=== PATIENT | male | born 1955 | race Caucasian/White ===

== ENCOUNTER 2017-12-01 16:25 | Inpatient (IN) | payer SELFPAY ==
[2017-12-01 17:16] LABS: #Lymphocytes 1.3 thou/uL (1.20-3.40); #Monocytes 0.9 thou/uL (0.11-0.59); %Basophils 0.4 % (0.0-1.0); %Eosinophils 0.3 % (0.0-10.0); %Lymphocytes 17.5 % (21.0-51.0); %Monocytes 12.8 % (0.0-10.0); %Neutrophils 68.9 % (42.0-75.0); Hemoglobin 14.1 g/dL (14.0-18.0); Mean Corpuscular HGB CONC 32.9 g/dL (32.0-36.0); Mean Corpuscular Hemoglobin 34.2 pg (27.0-31.0); Mean Platelet Volume 7.4 fL (7.4-10.4); Platelet Count 138 thou/uL (130-400); RBC Distribution Width 13.1 % (11.5-14.5); Red Blood Cell (RBC) Count 4.11 mill/uL (4.70-6.10); White Blood Cell (WBC) Count 7.3 thou/uL (4.8-10.8)
[2017-12-01 17:37] LABS: ALT (SGPT) 17 U/L (8-55); AST (SGOT) 23 U/L (5-34); Albumin 3.6 g/dL (3.5-5.0); Alkaline Phosphatase 74 U/L (40-150); Anion Gap 10 mmol/L (10-20); BUN (Urea Nitrogen) 13 mg/dL (8.4-25.7); Bilirubin, Total 1.5 mg/dL (0.2-1.2); Calc. Creatinine Clearance 0 mL/min (70-130); Calcium 8.6 mg/dL (7.8-10.44); Carbon Dioxide 25 mmol/L (22-29); Chloride 105 mmol/L (98-107); Estimated GFR-MDRD 79; Globulin 3.2 g/dL (2.4-3.5); Glucose 141 mg/dL (70-105); Potassium 3.4 mmol/L (3.5-5.1); Protein, Total 6.8 g/dL (6.0-8.3); Sodium 137 mmol/L (136-145)
[2017-12-01] MEDS ORDERED: Furosemide 40 MG/4 ML VIAL ONE (19:42)
[2017-12-01] MEDS ORDERED: Enoxaparin Sodium 100 MG/ML SYRINGE ONE (19:42)
[2017-12-01] MEDS ORDERED: Diltiazem HCl 125 MG, Admixture Fee 1 EACH in Sodium Chloride 0.9% 100 ML IVPB SCH (19:45)
[2017-12-01 20:53] LABS: CKMB 4.1 ng/mL (0-6.6); Troponin I 0.033 ng/mL (< 0.028)
[2017-12-01] MEDS ORDERED: Bisacodyl 5 MG TAB PO PRN (22:04)
[2017-12-01] MEDS ORDERED: Ondansetron ODT 4 MG TAB PO PRN (22:04)
[2017-12-01] MEDS ORDERED: Acetaminophen 325 MG TAB PO PRN (22:04)
[2017-12-01] MEDS ORDERED: Carvedilol 25 MG TAB PO SCH (22:15)
[2017-12-01] MEDS ORDERED: Famotidine 20 MG TAB PO SCH (22:30)
--- NOTE | 2017-12-01 22:37 | RAD ---
TWO VIEWS OF THE CHEST 12/01/17 COMPARISON: 09/19/14. HISTORY: Swelling in his feet and shortness of breath. FINDINGS: Two views of the chest shows an enlarged but stable cardiomediastinal silhouette. The patient is stat us post sternotomy. There are increased interstitial lung markings without consolidation, mass or ple ural effusion. IMPRESSION: Cardiomegaly without evidence of acute cardiopulmonary disease. POS: [facility]
[2017-12-01] MEDS ORDERED: Melatonin 3 MG TAB PO SCH (22:45)
[2017-12-01] MEDS ORDERED: Famotidine 20 MG TAB ONE (23:31)
[2017-12-02 00:01] LABS: Troponin I 0.041 ng/mL (< 0.028)
[2017-12-02] MEDS ORDERED: PROVENTIL INHALER 6.7 G (200 INHALATIONS) INH PRN (01:15)
[2017-12-02] MEDS ORDERED: Zolpidem Tartrate 5 MG TAB ONE (02:06)
[2017-12-02 03:16] LABS: Troponin I 0.047 ng/mL (< 0.028)
[2017-12-02 03:19] LABS: Anion Gap 13 mmol/L (10-20); BUN (Urea Nitrogen) 13 mg/dL (8.4-25.7); Calc. Creatinine Clearance 0 mL/min (70-130); Calcium 9.1 mg/dL (7.8-10.44); Carbon Dioxide 24 mmol/L (22-29); Chloride 104 mmol/L (98-107); Estimated GFR-MDRD Greater than 90; Glucose 201 mg/dL (70-105); Potassium 3.3 mmol/L (3.5-5.1); Sodium 138 mmol/L (136-145)
--- NOTE | 2017-12-02 03:59 | HP-2 ---
CODE STATUS: DO NOT RESUSCITATE. PRIMARY CARE PHYSICIAN: Mendel gonzales. ATTENDING: Dr. Horne. RESIDENT: Dr. Olmstead. CHIEF COMPLAINT: Shortness of breath. HISTORY OF PRESENT ILLNESS: This is a 62-year-old male who presents with a 1 week history of lower e xtremity swelling and shortness of breath. He states that he ran out of all of his medicines roughly 5 weeks ago because of loss of insurance. He also notes intermittent chest pain during this time. He admits to orthopnea to exercise intolerance and palpitations. He states that he is no longer able to walk up two flights of stairs. He is not able to walk around the grocery store any longer. He d enies any falls, but he also often gets lightheaded and unsteady on his feet. He has no other compla ints at this time. In the ER, he was given Lasix 40 mg, Lovenox 120 mg, diltiazem 20 mg and a 5 mg p er hour drip. PAST MEDICAL HISTORY: Significant for hypertension, coronary artery disease, status post 3-vessel CA BG, and atrial fibrillation. PAST SURGICAL HISTORY: Significant for history of 3-vessel CABG. ALLERGIES: No known drug allergies. MEDICATIONS: Alprazolam 0.5 mg, atorvastatin 80 mg, Proventil HFA, Ambien 10 mg, hydrochlorothiazide 25 mg, Xarelto 20 mg, and carvedilol 25 mg b.i.d. FAMILY HISTORY: Noncontributory. SOCIAL HISTORY: Patient is a current half pack per day smoker. He has smoked so long for at least 5 0 pack years. No alcohol, no drug use. REVIEW OF SYSTEMS: General: No fevers, no chills, no weight changes, no night sweats. Eyes: No vi stephen changes or eye pain. ENT: Denies any nasal congestion, rhinorrhea, or sore throat. Respirator y: Denies any cough, congestion. He does admit to shortness of breath and exercise intolerance. Ca rdiovascular: Admits chest pain, palpitations, edema, and orthopnea. Gastrointestinal: Denies naus ea, vomiting, diarrhea, constipation. Genitourinary: Denies incontinence, dysuria. Skin: He admit s to rash on his lower extremities. Musculoskeletal: Denies pain, tenderness or stiffness, but he d oes have swelling down to his lower extremities. Neurologic: Denies any numbness or syncope. Does admit to weakness. Psychiatric: He denies anxiety or depression. PHYSICAL EXAMINATION: VITAL SIGNS: BP was 172/109, pulse is 101, respiratory rate 21, temperature max 98.3, pulse ox 97% o n room air, current weight is 119 kilos. GENERAL: He is alert and oriented, appropriate, interactive. EYES: PERRLA. Conjunctivae within normal limits. ENT: Tympanic membranes pearly ag without bulging or erythema. Nasal mucosa and oropharynx within normal limits. NECK: Supple, with no lymphadenopathy, no thyromegaly. He does have JVD present. CARDIAC: He has an irregular rate and rhythm, no murmurs. Radial and pedal pulses were present, alt carin his pedal pulses were weak with the edema present. RESPIRATORY: Normal effort, no retractions. He does have coarse lung sounds with wheezes and crackl es bilaterally. SKIN: Warm and dry. ABDOMEN: Soft, nontender to palpation. Bowel sounds are present x4. No mass or distention. EXTREMITIES: He has no clubbing, no cyanosis. He does have 3+ pitting edema with some overlying jay ous stasis dermatitis skin changes present. MUSCULOSKELETAL: Structure, tone, muscle strength and range of motion within normal limits. NEUROLOGIC: No focal neurologic deficit sensation. Cranial nerves II-XII grossly intact. GCS was 1 5. PSYCHIATRIC: Appropriate. LABORATORY DATA: White blood cell count is 7.3, platelet count 138, hemoglobin 14.1, hematocrit 42.8 , MCV was 104, percent neutrophils 68.9. Sodium 137, potassium 3.4, chloride 105, bicarb 25, BUN 13, creatinine 0.97, glucose was 141, calcium was 8.6, total protein 6.8, albumin 3.6, total bilirubin 1 .5, AST was 23, ALT was 17, alkaline phosphatase was 74. His BNP was 414. His EKG showed atrial fib rillation with RVR. ASSESSMENT AND PLAN: A 62-year-old male. 1. New onset congestive heart failure. We gave him IV Lasix. We will put him on strict I's and O's . Get an echo. Fluid restriction. Restart home medications, get a cardiac profile, chest x-ray and start him on a heart failure regimen including an DAR inhibitor. 2. Atrial fibrillation with rapid ventricular response secondary to #1. We will give him diltiazem as needed. Likely that his beta tessie, carvedilol will be able to manage his rate and I am going f orward. 3. Coronary artery disease, status post 3-vessel coronary artery bypass graft. We will consider Car diology consult as this may be the source of his atrial fibrillation as well. We do have a cardiac p rofile pending. 4. Chronic obstructive pulmonary disease. We will put DuoNebs as needed and he is to start his inha ler. At this time, it does not seem that he needs to have steroids initiated. 5. Hypertension. We will continue his home medications and monitor. 6. Insomnia. We started with melatonin. We will give Ambien as needed as well. 7. Hyperbilirubinemia. It could be due to hepatic congestion. We will monitor that going forward. 8. Tobacco abuse. We have counseled him on cessation going forward. DISPOSITION LENGTH OF HOSPITAL STAY: Will be tele and 2. Symptomatic medications will be provided. History and physical exam as well as management has been discussed with Dr. Horne.
[2017-12-02] MEDS ORDERED: Furosemide 40 MG/4 ML VIAL ONE (05:46)
--- NOTE | 2017-12-02 07:22 | PDOC.FM ---
- Subjective Subjective: Patient reports that his symptoms have improved this AM. He is lying comfortably in bed with no SOB. He denies any further chest pain. He reports that he still has swelling in his legs. He denies any abd pain, N/V. - Objective MAR Reviewed: Yes Vital Signs & Weight: Vital Signs (12 hours) Pulse Resp Pulse Ox 12/02/17 00:24 86 20 95 Result Diagrams: 12/01/17 17:06 12/02/17 02:34 <Jelly Clark - Last Filed: 12/02/17 07:19> - Objective Vital Signs & Weight: Vital Signs (12 hours) Pulse Resp Pulse Ox 12/02/17 00:24 86 20 95 Result Diagrams: 12/01/17 17:06 12/02/17 02:34 <Tavo Horne - Last Filed: 12/02/17 10:14> Phys Exam - Physical Examination Constitutional: NAD HEENT: moist MMs Respiratory: no wheezing, no rales, no rhonchi, clear to auscultation bilateral Cardiovascular: no significant murmur, no rub irregularly irregular Gastrointestinal: soft, non-tender, no distention Musculoskeletal: pulses present, edema present (1+ pitting edema to mid valentin) Neurological: non-focal, moves all 4 limbs Psychiatric: normal affect, A&O x 3 <Jelly Clark - Last Filed: 12/02/17 07:19> Dx/Plan (1) CHF exacerbation Code(s): I50.9 - HEART FAILURE, UNSPECIFIED Status: Acute QualifierTitle: Congestive heart failure type: unspecified congestive heart failure type Qualified Code(s): I50.9 - Heart failure, unspecified (2) Atrial fibrillation Code(s): I48.91 - UNSPECIFIED ATRIAL FIBRILLATION Status: Acute QualifierTitle: Atrial fibrillation type: chronic Qualified Code(s): I48.2 - Chronic atrial fibrillation (3) CAD (coronary artery disease) Code(s): I25.10 - ATHSCL HEART DISEASE OF [place] CORONARY ARTERY W/O ANG PCTRS Status: Acute QualifierTitle: Coronary Disease-Associated Artery/Lesion type: [place] artery [place] vs. transplanted heart: [place] heart Associated angina: with unspecified angina Qualified Code(s): I25.119 - Atherosclerotic heart disease of [place] coronary artery with unspecified angina pectoris (4) COPD (chronic obstructive pulmonary disease) Status: Acute QualifierTitle: COPD type: unspecified COPD Qualified Code(s): J44.9 - Chronic obstructive pulmonary disease, unspecified (5) HTN (hypertension) Code(s): I10 - ESSENTIAL (PRIMARY) HYPERTENSION Status: Acute QualifierTitle: Hypertension type: essential hypertension Qualified Code( s): I10 - Essential (primary) hypertension (6) Tobacco abuse Code(s): Z72.0 - TOBACCO USE Status: Acute - Plan Plan: 1. New onset Acute CHF Exacerbation Patient has SOB, [place], Orthopnea, severe pitting edema, JVD, elevated BNP to 414.2. He has no history of CHF in the past. -Lasix 40mg IV BID -Lisinopril -Echo -Consult cards pending echo results -Strict I/O's, fluid restrict, daily weights 2. A-fib Patient has been told in the past that his heart was in an irregular rhythm. Patient was on a dilt gtt initially in the ED, but this has been discontinued. -Coreg 25mg BID -Monitor on tele 3. Indeterminate Troponins Patient was initially complaining of chest pain, this has since resolved. No ischemic changes on EKG -Trend troponins -Monitor on tele -Repeat EKG prn -On Xarelto -Nitro prn 4. COPD Patient does not appear to be in an acute exacerbation -Will continue home meds -Duonebs prn 5. CAD s/p 3v CABG -Continue home meds 6. HTN -Continue home meds 7. Tobacco abuse -Nicoderm patch -Counseling <Jelly Clark - Last Filed: 12/02/17 07:19> Attending Addendum - Attending Addendum I personally evaluated the patient and discussed the management with Dr. Clark. I agree with the History, Examination, Assessment and Plan documented above with any addition or exceptions noted below. Patient admitted for Afib with RVR likely 2/2 medication noncompliance. We will stop Dilt drip now and restart his home beta tessie medication. If recurs, will need Dilt drip and cardiology consult for further mgmt options. Also appears to have new onset HF based on exam and history. Awaiting echo report, continue with strict I/O, fluid restriction, and diuresis. Expect 1-2 days more in hospital. <Tavo Horne R - Last Filed: 12/02/17 10:14>
[2017-12-02] MEDS ORDERED: Carvedilol 25 MG TAB PO SCH ×2 (08:00)
[2017-12-02] MEDS ORDERED: Potassium Chloride 20 MEQ TAB PO SCH (10:15)
--- NOTE | 2017-12-02 10:22 | PDOC.EVN ---
Attending Addendum - Attending Addendum I personally evaluated the patient and discussed the management with Dr. Olmstead. I agree with the History, Examination, Assessment and Plan documented in his H& P with any addition or exceptions noted below. Patient with history of CAD, Afib, HTN admitted after being off medications for several weeks. He has had chest pain, palpitations, shortness of breath, and symptoms of heart failure. His exam is consistent with such. Patient to be admitted for Afib RVR, likely new onset HF, and chest pain. Will hold Diltiazem and restart Coreg as his HR is now back within normal range. Will obtain Echo, and begin diuresis. Cardiology consult if truly in new onset HF.
[2017-12-02] MEDS ORDERED: Famotidine 20 MG TAB ONE (10:27)
[2017-12-02 10:34] LABS: Hemoglobin A1c 5.9 % (4.0-6.0)
[2017-12-02 10:47] LABS: CKMB 2.6 ng/mL (0-6.6); Troponin I 0.041 ng/mL (< 0.028)
[2017-12-02] MEDS: Nicotine 14 MG PATCH TD SCH ×2 (13:09→21:31)
[2017-12-02] MEDS: Rivaroxaban 10 MG TAB PO SCH (13:10)
[2017-12-02] MEDS: Furosemide 40 MG/4 ML VIAL SLOW IVP SCH ×2 (13:10→13:55)
[2017-12-02] MEDS: Atorvastatin Calcium 40 MG TAB PO SCH (13:11)
[2017-12-02] MEDS: Famotidine 20 MG TAB PO SCH ×2 (13:11→21:31)
[2017-12-02] MEDS: Lisinopril 2.5 MG TAB PO SCH (13:11)
[2017-12-02] MEDS: Carvedilol 25 MG TAB PO SCH ×2 (13:11→21:31)
[2017-12-02 13:13] VITALS: BMI 33.5
--- NOTE | 2017-12-02 13:48 | EKG ---
Test Reason : SOB Blood Pressure : / mmHG Vent. Rate : 104 BPM Atrial Rate : 220 BPM P-R Int : 000 ms QRS Dur : 080 ms QT Int : 352 ms P-R-T Axes : 000 054 028 degrees QTc Int : 462 ms Atrial fibrillation with rapid ventricular response Abnormal ECG Confirmed by CARMEL HOUSTON ([id number]), advertising editor ANGELES NORIEGA ([id number]) on 12/02/2017 1:48:14 PM Referred By: Confirmed By:CARMEL HOUSTON
[2017-12-02] MEDS ORDERED: Sodium Chloride 0.9% 10 ML ONE (20:28)
[2017-12-02] MEDS ORDERED: Albuterol Sulfate 1.25 MG/3 ML NEB NEB PRN (22:28)
[2017-12-02] MEDS: Loratadine 10 MG TAB PO PRN (22:44)
[2017-12-02] MEDS: Zolpidem Tartrate 5 MG TAB PO PRN (22:45)
[2017-12-03] MEDS: Rivaroxaban 10 MG TAB PO SCH (06:04)
[2017-12-03] MEDS: Furosemide 40 MG/4 ML VIAL SLOW IVP SCH ×2 (06:04→13:43)
[2017-12-03 06:47] LABS: Anion Gap 11 mmol/L (10-20); BUN (Urea Nitrogen) 13 mg/dL (8.4-25.7); Calc. Creatinine Clearance 159 mL/min (70-130); Carbon Dioxide 27 mmol/L (22-29); Chloride 103 mmol/L (98-107); Estimated GFR-MDRD Greater than 90; Glucose 116 mg/dL (70-105); Potassium 3.4 mmol/L (3.5-5.1); Sodium 138 mmol/L (136-145)
--- NOTE | 2017-12-03 07:17 | PDOC.FM ---
- Subjective Subjective: The patient is doing well this AM. He reports that he had some SOB overnight last night and he is supposed to use CPAP at home, but he doesn't so he was given a CPAP machine to use and that helped a lot with his SOB. He feels like his swelling has improved some and denies any chest pain. He is tolerating PO well. - Objective MAR Reviewed: Yes Vital Signs & Weight: Vital Signs (12 hours) Temp Pulse Resp BP BP Pulse Ox 12/03/17 06:00 111 H 20 142/91 H 12/03/17 04:20 177/103 H 12/03/17 04:00 98.0 F 105 H 20 177/103 H 95 12/03/17 03:55 95 12/03/17 02:54 12 12/03/17 00:07 149/94 H 95 12/02/17 23:58 99.3 F 100 22 H 149/94 H 95 12/02/17 23:45 98 12 96 12/02/17 21:28 98.1 F 107 H 20 129/91 H 93 L 12/02/17 21:04 129/91 H Weight Weight 114.532 kg I&O: 12/02/17 12/03/17 12/04/17 06:59 06:59 06:59 Intake Total 1464 Output Total 2250 Balance -786 Result Diagrams: 12/01/17 17:06 12/03/17 06:00 <Jelly Clark - Last Filed: 12/03/17 07:15> - Objective Vital Signs & Weight: Vital Signs (12 hours) Temp Pulse Resp BP BP Pulse Ox 12/03/17 08:17 88 12 12/03/17 06:00 111 H 20 142/91 H 12/03/17 04:20 177/103 H 12/03/17 04:00 98.0 F 105 H 20 177/103 H 95 12/03/17 03:55 95 12/03/17 02:54 12 12/03/17 00:07 149/94 H 95 12/02/17 23:58 99.3 F 100 22 H 149/94 H 95 12/02/17 23:45 98 12 96 Weight Weight 114.532 kg I&O: 12/02/17 12/03/17 12/04/17 06:59 06:59 06:59 Intake Total 1464 Output Total 2250 Balance -786 Result Diagrams: 12/01/17 17:06 12/03/17 06:00 <Tavo Horne - Last Filed: 12/03/17 10:00> Phys Exam - Physical Examination Constitutional: NAD HEENT: moist MMs Respiratory: no wheezing, no rhonchi rales in bilateral lung bases Cardiovascular: no significant murmur, no rub irregularly irregular Gastrointestinal: soft, non-tender, no distention, positive bowel sounds Musculoskeletal: pulses present, edema present (2+ pitting edema in bilateral lower extremities) Neurological: non-focal, moves all 4 limbs Psychiatric: normal affect, A&O x 3 <Jelly Clark - Last Filed: 12/03/17 07:15> Dx/Plan (1) CHF exacerbation Code(s): I50.9 - HEART FAILURE, UNSPECIFIED Status: Acute QualifierTitle: Congestive heart failure type: unspecified congestive heart failure type Qualified Code(s): I50.9 - Heart failure, unspecified (2) Atrial fibrillation Code(s): I48.91 - UNSPECIFIED ATRIAL FIBRILLATION Status: Acute QualifierTitle: Atrial fibrillation type: chronic Qualified Code(s): I48.2 - Chronic atrial fibrillation (3) CAD (coronary artery disease) Code(s): I25.10 - ATHSCL HEART DISEASE OF [place] CORONARY ARTERY W/O ANG PCTRS Status: Acute QualifierTitle: Coronary Disease-Associated Artery/Lesion type: [place] artery [place] vs. transplanted heart: [place] heart Associated angina: with unspecified angina Qualified Code(s): I25.119 - Atherosclerotic heart disease of [place] coronary artery with unspecified angina pectoris (4) COPD (chronic obstructive pulmonary disease) Status: Acute QualifierTitle: COPD type: unspecified COPD Qualified Code(s): J44.9 - Chronic obstructive pulmonary disease, unspecified (5) HTN (hypertension) Code(s): I10 - ESSENTIAL (PRIMARY) HYPERTENSION Status: Acute QualifierTitle: Hypertension type: essential hypertension Qualified Code( s): I10 - Essential (primary) hypertension (6) Tobacco abuse Code(s): Z72.0 - TOBACCO USE Status: Acute (7) Atrial fibrillation with RVR Code(s): I48.91 - UNSPECIFIED ATRIAL FIBRILLATION Status: Acute - Plan Plan: 1. New onset CHF Patient has SOB, [place], Orthopnea, severe pitting edema, JVD, elevated BNP to 414.2. He has no history of CHF in the past. -Lasix 40mg IV BID -Lisinopril -Echo -Consult cards pending echo results -Strict I/O's, fluid restrict, daily weights Diuresed net -630 in past 24 h 2. A-fib Patient has been told in the past that his heart was in an irregular rhythm. Patient was on a dilt gtt initially in the ED, but this has been discontinued. -Coreg 25mg BID -Monitor on tele Has been in a-fib with rate in 90s-low 100's 3. Indeterminate Troponins Patient was initially complaining of chest pain, this has since resolved. No ischemic changes on EKG Trops downtrended -Monitor on tele -Repeat EKG prn -On Xarelto -Nitro prn 4. COPD Patient does not appear to be in an acute exacerbation -Will continue home meds -Duonebs prn 5. CAD s/p 3v CABG -Continue home meds 6. HTN -Continue home meds 7. Tobacco abuse -Nicoderm patch -Counseling <Jelly Clark - Last Filed: 12/03/17 07:15> Attending Addendum - Attending Addendum I personally evaluated the patient and discussed the management with Dr. Clark. I agree with the History, Examination, Assessment and Plan documented above with any addition or exceptions noted below. Patient feels improved, but continues to have elevated heart rate despite maximal beta blockade with Coreg. He also is having some PVCs on his tele monitoring. Will consult cardiology for further recs regarding his Afib, consider Amiodarone if continues to have frequent PVCs or if has NS v tach. Echo shows preserved EF. Will continue diuresis for presumed new onset HF, likely diastolic in nature. <Tavo Horne - Last Filed: 12/03/17 10:00>
[2017-12-03] MEDS ORDERED: Potassium Chloride 20 MEQ TAB PO SCH (07:45)
[2017-12-03] MEDS ORDERED: Sodium Chloride 0.9% 10 ML ONE ×3 (08:08→20:14)
[2017-12-03] MEDS ORDERED: FLU VACC QS2017-18 36 mo. & older 0.5 ML SYRINGE IM ONE (09:00)
[2017-12-03] MEDS: Atorvastatin Calcium 40 MG TAB PO SCH (09:37)
[2017-12-03] MEDS: Carvedilol 25 MG TAB PO SCH ×2 (09:38→21:51)
[2017-12-03] MEDS: Famotidine 20 MG TAB PO SCH ×2 (09:38→21:51)
[2017-12-03] MEDS: Lisinopril 2.5 MG TAB PO SCH (09:39)
[2017-12-03] MEDS: Fluticasone Propionate Nasal Spray 16 gm Bottle NASAL SCH (12:25)
[2017-12-03] MEDS ORDERED: Lorazepam 1 MG TAB PO PRN (14:17)
[2017-12-03] MEDS ORDERED: Diltiazem 125 MG in Sodium Chloride 0.9% 100 ML IVPB SCH (16:00)
--- NOTE | 2017-12-03 17:56 | CON ---
DATE OF CONSULTATION: 12/03/2017 REASON FOR CONSULTATION: Atrial fibrillation with rapid ventricular response and cardiomyopathy. HISTORY OF PRESENT ILLNESS: Mr. Butler is a 62-year-old gentleman who is a patient of Dr. Cesar henriquez. He currently lives in [place] near [place], but works in [place]. He has been seen and e valuated at our institution several times over the last several years. He underwent coronary angiogr aphy and was treated medically by Dr. Cesar Caceres. He also has a history of atrial fibrillation. His main complaint has been shortness of breath and lower extremity edema with decreased exercise t olerance. No chest pain or pressure noted. He does state he was set up for ICD placement, but due t o insurance issues, could not have it placed. PAST MEDICAL HISTORY: CAD status post bypass surgery, continued tobacco abuse, PVD, atrial fibrillat ion. Currently on Xarelto and has been over the last 3 months. ALLERGIES: None. MEDICATIONS: Alprazolam, atorvastatin, Proventil, Ambien, hydrochlorothiazide, carvedilol, Xarelto. SOCIAL HISTORY: Positive tobacco use. REVIEW OF SYSTEMS: Ten-point review of systems is reviewed and is as above negative. PHYSICAL EXAMINATION: GENERAL: Patient is a pleasant male who is in no acute distress. The patient appears his stated age . VITAL SIGNS: Blood pressure 140/93, pulse 112, respirations 20. NEUROLOGIC: The patient is alert and oriented times 3 with no focal neurologic deficits. HEENT: Sclerae without icterus. Mouth has moist mucous membranes with normal pallor. NECK: No JVD. Carotid upstroke brisk. No bruits bilaterally. LUNGS: Clear to auscultation with unlabored respirations. BACK: No scoliosis or kyphosis. CARDIAC: Irregularly irregular with normal S1 and S2. No S3 or S4 noted. No significant rubs, murm urs, thrills, or gallops noted throughout the precordium. PMI is not displaced. There is no paraste rnal heave. ABDOMEN: Soft, nontender, nondistended. No peritoneal signs present. No hepatosplenomegaly. No ab normal striae. EXTREMITIES: 2+ femoral and 2+ dorsalis pedis pulses. No cyanosis, clubbing, or edema. SKIN: No gross abnormalities. PERTINENT LABORATORY DATA: Hemoglobin 14.1. Creatinine 0.8. Peak troponin 0.047. IMPRESSION: 1. Atrial fibrillation with rapid ventricular response. 2. Coronary artery disease. 3. Status post bypass surgery. RECOMMENDATIONS: It does not appear Mr. Butler is currently on Cardizem IV. We will add IV Cardizem for better rate control. He may benefit from carvedilol in addition to Cardizem. I also added digo tiera. His LVEF on recent echo was with normal LVEF. I counseled him on cessation of all tobacco prod ucts.
[2017-12-03] MEDS: Zolpidem Tartrate 5 MG TAB PO PRN (21:51)
[2017-12-03] MEDS: Nicotine 14 MG PATCH TD SCH (21:51)
[2017-12-03] MEDS: Loratadine 10 MG TAB PO PRN (21:51)
[2017-12-04 05:37] LABS: Anion Gap 13 mmol/L (10-20); BUN (Urea Nitrogen) 13 mg/dL (8.4-25.7); Calc. Creatinine Clearance 139 mL/min (70-130); Calcium 9.3 mg/dL (7.8-10.44); Carbon Dioxide 25 mmol/L (22-29); Chloride 103 mmol/L (98-107); Estimated GFR-MDRD 87; Glucose 116 mg/dL (70-105); Potassium 3.5 mmol/L (3.5-5.1); Sodium 137 mmol/L (136-145)
[2017-12-04] MEDS: Rivaroxaban 10 MG TAB PO SCH (05:39)
[2017-12-04] MEDS: Furosemide 40 MG/4 ML VIAL SLOW IVP SCH ×2 (05:39→14:25)
[2017-12-04] MEDS: Hydrochlorothiazide 25 MG TAB PO SCH ×2 (08:58→21:26)
[2017-12-04] MEDS: Carvedilol 25 MG TAB PO SCH ×2 (08:58→21:26)
[2017-12-04] MEDS: Famotidine 20 MG TAB PO SCH ×2 (08:58→21:26)
[2017-12-04] MEDS: Atorvastatin Calcium 40 MG TAB PO SCH (08:58)
--- NOTE | 2017-12-04 09:47 | PDOC.FM ---
- Subjective Subjective: Patient resting comfortably this morning. Reports he is feeling much better. He did not wear CPAP last night because he doesn't like to wear it. Patient reports he has a place in [place] that he thinks will be able to supply him with Xarelto group home. - Objective MAR Reviewed: Yes Vital Signs & Weight: Vital Signs (12 hours) Temp Pulse Resp BP BP Pulse Ox 12/04/17 08:00 97.5 F L 97 18 148/94 H 98 12/04/17 07:45 97.5 F L 97 18 98 12/04/17 07:44 112 H 18 98 12/04/17 05:34 97 20 140/97 H 98 12/04/17 04:00 97.5 F L 93 18 167/106 H 167/106 H 97 12/04/17 01:27 92 12 12/03/17 23:51 97.9 F 102 H 20 148/94 H 148/94 H 97 Weight Weight 111.674 kg I&O: 12/03/17 12/04/17 12/05/17 06:59 06:59 06:59 Intake Total 1464 1344 Output Total 2250 3905 Balance -786 1834 Result Diagrams: 12/01/17 17:06 12/04/17 04:48 Phys Exam - Physical Examination Constitutional: NAD HEENT: moist MMs, oral pharynx no lesions Malampati 3 Neck: no JVD Respiratory: no wheezing, no rales, clear to auscultation bilateral Cardiovascular: RRR, no significant murmur Gastrointestinal: soft, non-tender 1+ pitting edema bilaterally Neurological: non-focal, moves all 4 limbs Psychiatric: A&O x 3 Dx/Plan (1) CHF exacerbation Code(s): I50.9 - HEART FAILURE, UNSPECIFIED Status: Acute Qualifiers: Congestive heart failure type: unspecified congestive heart failure type Qualified Code(s): I50.9 - Heart failure, unspecified (2) Atrial fibrillation with RVR Code(s): I48.91 - UNSPECIFIED ATRIAL FIBRILLATION Status: Resolved (3) COPD (chronic obstructive pulmonary disease) Status: Acute Qualifiers: COPD type: unspecified COPD Qualified Code(s): J44.9 - Chronic obstructive pulmonary disease, unspecified (4) Obstructive sleep apnea Code(s): G47.33 - OBSTRUCTIVE SLEEP APNEA (ADULT) (PEDIATRIC) Status: Acute (5) HTN (hypertension) Code(s): I10 - ESSENTIAL (PRIMARY) HYPERTENSION Status: Acute Qualifiers: Hypertension type: essential hypertension Qualified Code(s): I10 - Essential (primary) hypertension (6) Tobacco abuse Code(s): Z72.0 - TOBACCO USE Status: Acute - Plan Plan: 1. New onset CHF Patient much improved, still with pitting edema bilaterally -continue Lasix 40mg IV BID -refrain from giving DAR-I or ARB due to hx of angioedema -Echo with preserved EF, unable to evaluate diastolic function due to afib, likely has diastolic CHF -Cardiology consulted, appreciate recs -Strict I/O's, fluid restrict, daily weights 2. A-fib Patient has been told in the past that his heart was in an irregular rhythm. Patient was on a dilt gtt initially in the ED, but this has been discontinued. -Diltiazem 30mg po ACHS -Coreg 25mg BID -Monitor on tele Has been in a-fib with rate in 90s-low 100's 3. Indeterminate Troponins Patient was initially complaining of chest pain, this has since resolved. No ischemic changes on EKG Trops downtrended -Monitor on tele -Repeat EKG prn -On Xarelto -Nitro prn 4. COPD Patient does not appear to be in an acute exacerbation -Will continue home meds -Duonebs prn 5. CAD s/p 3v CABG -Continue home meds 6. HTN -Start HCTZ 12.5 BID 7. Tobacco abuse -Nicoderm patch -Counseling 8. Uninsured - Working with to get 1 month supply of Xarelto until able to get cement tile maker from facility in [place]. 9. DEANNE - Patient noncompliant with CPAP, educated and discussed importance of CPAP - CPAP in room
[2017-12-04] MEDS: Fluticasone Propionate Nasal Spray 16 gm Bottle NASAL SCH (14:25)
[2017-12-04] MEDS ORDERED: Digoxin 0.5 MG/2 ML AMP SLOW IVP SCH (18:30)
[2017-12-04] MEDS: Zolpidem Tartrate 5 MG TAB PO PRN (21:26)
[2017-12-04] MEDS: Nicotine 14 MG PATCH TD SCH (21:27)
[2017-12-05 05:47] LABS: Anion Gap 11 mmol/L (10-20); BUN (Urea Nitrogen) 19 mg/dL (8.4-25.7); Calc. Creatinine Clearance 136 mL/min (70-130); Calcium 9.6 mg/dL (7.8-10.44); Carbon Dioxide 28 mmol/L (22-29); Chloride 101 mmol/L (98-107); Estimated GFR-MDRD 85; Glucose 137 mg/dL (70-105); Potassium 3.4 mmol/L (3.5-5.1); Sodium 137 mmol/L (136-145)
[2017-12-05] MEDS: Furosemide 40 MG/4 ML VIAL SLOW IVP SCH (06:05)
[2017-12-05] MEDS: Rivaroxaban 10 MG TAB PO SCH (06:05)
--- NOTE | 2017-12-05 06:56 | PDOC.FM ---
- Subjective Subjective: Patient is up walking around. Reports he feels much improved and is ready to go home. No acute events overnight. - Objective MAR Reviewed: Yes Vital Signs & Weight: Vital Signs (12 hours) Temp Pulse Resp BP BP Pulse Ox 12/05/17 04:20 97 12/05/17 04:00 98.3 F 80 18 166/99 H 97 12/05/17 00:30 161/97 H 95 12/05/17 00:17 19 95 12/05/17 00:00 97.9 F 82 17 161/97 H 95 12/04/17 20:18 85 18 95 12/04/17 20:00 152/76 H 12/04/17 19:30 97.7 F 82 18 152/76 H 98 12/04/17 18:58 84 Weight Weight 111.357 kg I&O: 12/03/17 12/04/17 12/05/17 06:59 06:59 06:59 Intake Total 1464 1344 960 Output Total 2250 6980 3722 [employer] -5214 -4578 Result Diagrams: 12/01/17 17:06 12/05/17 05:02 <Alysa Curtis - Last Filed: 12/05/17 09:18> - Objective Vital Signs & Weight: Vital Signs (12 hours) Temp Pulse Resp BP BP Pulse Ox 12/05/17 08:29 92 12/05/17 08:27 98.2 F 92 16 172/106 H 95 12/05/17 08:13 100 14 12/05/17 04:20 97 12/05/17 04:00 98.3 F 80 18 166/99 H 97 12/05/17 00:30 161/97 H 95 12/05/17 00:17 19 95 12/05/17 00:00 97.9 F 82 17 161/97 H 95 Weight Weight 111.357 kg I&O: 12/04/17 12/05/17 12/06/17 06:59 06:59 06:59 Intake Total 1344 960 Output Total 6065 3725 [email or web address] -7673 -2928 Result Diagrams: 12/01/17 17:06 12/05/17 05:02 <Scot Aparicio - Last Filed: 12/05/17 11:07> Phys Exam - Physical Examination Constitutional: NAD HEENT: moist MMs Neck: full ROM Respiratory: no wheezing, no rales, no rhonchi, clear to auscultation bilateral Cardiovascular: RRR, no significant murmur Gastrointestinal: soft, non-tender, no distention trace edema Neurological: moves all 4 limbs Psychiatric: A&O x 3 <Alysa Curtis - Last Filed: 12/05/17 09:18> Dx/Plan (1) CHF exacerbation Code(s): I50.9 - HEART FAILURE, UNSPECIFIED Status: Acute QualifierTitle: Congestive heart failure type: unspecified congestive heart failure type Qualified Code(s): I50.9 - Heart failure, unspecified (2) Atrial fibrillation with RVR Code(s): I48.91 - UNSPECIFIED ATRIAL FIBRILLATION Status: Resolved (3) COPD (chronic obstructive pulmonary disease) Status: Acute QualifierTitle: COPD type: unspecified COPD Qualified Code(s): J44.9 - Chronic obstructive pulmonary disease, unspecified (4) Obstructive sleep apnea Code(s): G47.33 - OBSTRUCTIVE SLEEP APNEA (ADULT) (PEDIATRIC) Status: Acute (5) HTN (hypertension) Code(s): I10 - ESSENTIAL (PRIMARY) HYPERTENSION Status: Acute QualifierTitle: Hypertension type: essential hypertension Qualified Code( s): I10 - Essential (primary) hypertension (6) Tobacco abuse Code(s): Z72.0 - TOBACCO USE Status: Acute - Plan Plan: 1. New onset CHF Patient much improved since admission -transition to PO Lasix 40mg daily -refrain from giving DAR-I or ARB due to hx of angioedema -Echo with preserved EF, unable to evaluate diastolic function due to afib, likely has diastolic CHF -Cardiology consulted, appreciate recs -Coreg 25mg BID -Digoxin added by cardiolgy -Strict I/O's, fluid restrict, daily weights 2. A-fib Patient has been told in the past that his heart was in an irregular rhythm. Patient was on a dilt gtt initially in the ED, but this has been discontinued. -Diltiazem 30mg po ACHS -Monitor on tele -on Xarelto Has been in a-fib with rate in 90s-low 100's 3. Indeterminate Troponins Patient was initially complaining of chest pain, this has since resolved. No ischemic changes on EKG Trops downtrended -Monitor on tele -Nitro prn 4. COPD Patient does not appear to be in an acute exacerbation -Will continue home meds -Duonebs prn 5. CAD s/p 3v CABG -Continue home meds 6. HTN -Continue HCTZ 12.5 BID 7. Tobacco abuse -Nicoderm patch -Counseling 8. Uninsured - CM reports patient is employed and has monthly income >6,000. He does not qualify for any programs with this status and will have to pay for medications and insurance out of pocket. 9. DEANNE - Patient noncompliant with CPAP, educated and discussed importance of CPAP - CPAP in room <Alysa Curtis - Last Filed: 12/05/17 09:18> Attending Addendum - Attending Addendum I personally evaluated the patient and discussed the management with Dr. Curtis. I agree with the History, Examination, Assessment and Plan documented above with any addition or exceptions noted below. Pt is ready for discharge today, RVR resolved and CHF exacerbation resolved. Pt to follow up with case management prior to discharge with regard to obtaining his medications, apparently he does not qualify for financial assistance. <Scot Aparicio - Last Filed: 12/05/17 11:07>
[2017-12-05] MEDS ORDERED: Potassium Chloride 20 MEQ TAB PO SCH (07:00)
[2017-12-05] MEDS ORDERED: Furosemide 40 MG TAB PO SCH (07:30)
[2017-12-05] MEDS: Hydrochlorothiazide 25 MG TAB PO SCH (08:28)
[2017-12-05] MEDS: Atorvastatin Calcium 40 MG TAB PO SCH (08:29)
[2017-12-05] MEDS: Famotidine 20 MG TAB PO SCH (08:29)
[2017-12-05] MEDS: Carvedilol 25 MG TAB PO SCH (08:29)
[2017-12-05] MEDS: Fluticasone Propionate Nasal Spray 16 gm Bottle NASAL SCH (08:32)
[2017-12-05] MEDS ORDERED: Digoxin 0.25 MG TAB PO SCH (09:00)
[2017-12-05 12:26] VITALS: BP 147/83; TEMP 97.9
== END 2017-12-05 14:48 | disposition home or self-care (01) | DRG 308 ==
LOC: ERS 16:25 → ERHOLD 19:38 → 2NO 12-02 12:53
PROVIDERS: ADMIT Student in an Organized Health Care Education/Training Program; ATTEND Student in an Organized Health Care Education/Training Program
DX: I48.2 Chronic atrial fibrillation (principal); I50.33 Acute on chronic diastolic (congestive) heart failure; I11.0 Hypertensive heart disease with heart failure; J44.9 Chronic obstructive pulmonary disease, unspecified; I25.10 Atherosclerotic heart disease of native coronary artery without angina pectoris; F17.210 Nicotine dependence, cigarettes, uncomplicated; E78.5 Hyperlipidemia, unspecified; I70.209 Unspecified atherosclerosis of native arteries of extremities, unspecified extremity; R00.0 Tachycardia, unspecified; G47.33 Obstructive sleep apnea (adult) (pediatric); Z91.19 Patient's noncompliance with other medical treatment and regimen; Z23 Encounter for immunization; Z68.33 Body mass index [BMI] 33.0-33.9, adult; Z79.01 Long term (current) use of anticoagulants; G47.00 Insomnia, unspecified; E66.9 Obesity, unspecified
CPT/HCPCS: 36415; 71046; 80048; 80053; 82553; 83036; 83735; 83880; 84484; 85025; 90471; 90682; 93005; 93306; 93798; 94640; 94660; 96365; 96366; 96372; 96375; 96376; A4216; G0008; J1160; J1650; J1940; J7050; J7620; Q2036